=== PATIENT | male | born 1970 | race Two or more races ===

== ENCOUNTER 2018-11-18 08:28 | Outpatient (CLI) | payer OTHER ==
[2018-11-18] MEDS ORDERED: LANTUS SOL100 UNIT/1 SUBCUTANEO (12:33)
[2018-11-18] MEDS ORDERED: FENOFIBRATE160 MG PO (12:36)
[2018-11-18] MEDS ORDERED: GLYXAMBI 25 MG1 EACH PO (12:36)
[2018-11-18] MEDS ORDERED: COZAAR100 MG PO (12:37)
== END 2018-11-18 08:56 | disposition home or self-care (01) ==
LOC: LAB 08:28 → RAD 08:28
DX: D64.89 Other specified anemias (principal); E88.89 Other specified metabolic disorders; D68.8 Other specified coagulation defects; N39.0 Urinary tract infection, site not specified; Z22.322 Carrier or suspected carrier of Methicillin resistant Staphylococcus aureus; Z76.89 Persons encountering health services in other specified circumstances; I10 Essential (primary) hypertension

== ENCOUNTER 2018-11-29 07:21 | Day surgery (SDC) | payer OTHER ==
[~2018-11-29 07:21] MED LIST: COZAAR100 MG PO; FENOFIBRATE160 MG PO; GLYXAMBI 25 MG1 EACH PO; LANTUS SOL100 UNIT/1 SUBCUTANEO
== END 2018-11-29 15:25 | disposition home or self-care (01) ==
LOC: CIR.AMB 07:21
DX: M75.112 Incomplete rotator cuff tear or rupture of left shoulder, not specified as traumatic (principal); M19.012 Primary osteoarthritis, left shoulder; M65.812 Other synovitis and tenosynovitis, left shoulder